=== PATIENT | male | born 1980 | race Caucasian/White ===

== ENCOUNTER 2021-09-12 23:24 | Emergency (ER) | payer OTHER ==
[~2021-09-12] VITALS: Ht 180.3 cm; Wt 88.5 kg
--- NOTE | 2021-09-12 23:38 | NUR ---
ekg performed, Dr. Lawrence in room for MSE, appeals referee in room as pt mostly speaks [place].
[2021-09-12] MEDS ORDERED: ASPIRIN 325 MG TABLET ONE (23:42)
[2021-09-12] MEDS ORDERED: NITROGLYCERIN 0.4 MG/TAB BOTTLE SL ONE ×2 (23:45→23:51)
[2021-09-12] MEDS ORDERED: ASPIRIN 325 MG TABLET PO ONE (23:45)
--- NOTE | 2021-09-12 23:49 | NUR ---
Called 911 for code stemi
[2021-09-12] MEDS ORDERED: HEPARIN SODIUM,PORCINE 5,000 UNITS/ML VIAL ONE (23:52)
[2021-09-12 23:53] LABS: MEAN CORPUSCULAR HEMOGLOBIN 28.6 uug (23.8-33.4); PLATELET COUNT (AUTO) 166 K/uL (152-348)
--- NOTE | 2021-09-12 23:55 | NUR ---
Report given to Meredith SANTIAGO [facility]. Paramedics arrived to ER to transport patient to [facility].
[2021-09-12 23:56] VITALS: BP 122/79
[2021-09-13] LABS: CARBON DIOXIDE 30 mmol/L (21-32); CHLORIDE 103 mmol/L (98-107); CREATININE 1.2 mg/dL (0.6-1.3); GLUCOSE 141 mg/dL (74-106); POTASSIUM 3.9 mmol/L (3.5-5.1); UREA NITROGEN, BLOOD 19 mg/dL (7-18)
[2021-09-13] MEDS ORDERED: HEPARIN SODIUM,PORCINE 5,000 UNITS/ML VIAL IV ONE
--- NOTE | 2021-09-13 00:01 | NUR ---
second ntg sl was given with a bp of 119/78. pain was 6/10 chest pain.
--- NOTE | 2021-09-13 00:03 | NUR ---
paramedics departed with the pt to transport to [facility].
== END 2021-09-13 00:26 | disposition short-term general hospital (02) ==
LOC: ER 23:37
DX: I21.3 ST elevation (STEMI) myocardial infarction of unspecified site (principal)
CPT/HCPCS: 99291; 96374; 80048; 83880; 85025; 85730; 84484; 36415; 93005; 71045; J1644; A4663